=== PATIENT | male | born 1960 ===

== ENCOUNTER → 2019-07-10 | Outpatient (CLI) | payer OTHER | END | disposition home or self-care (01) | LOC: RAD 06:56 | DX: M79.641 Pain in right hand (principal); M25.531 Pain in right wrist ==

== ENCOUNTER 2021-01-07 10:13 | Outpatient (CLI) | payer OTHER | END 2021-01-07 10:23 | disposition home or self-care (01) | LOC: RAD 10:13 | PROVIDERS: ATTEND Internal Medicine Nephrology | DX: M25.552 Pain in left hip (principal) ==

== ENCOUNTER 2021-01-27 08:15 | Outpatient (CLI) | payer OTHER | END 2021-01-27 08:45 | disposition home or self-care (01) | LOC: MRI 08:15 | PROVIDERS: ATTEND Physical Medicine & Rehabilitation Pain Medicine | DX: M54.17 Radiculopathy, lumbosacral region (principal); M25.852 Other specified joint disorders, left hip | CPT/HCPCS: 72148; 73721 ==

== ENCOUNTER → 2024-09-05 | Outpatient (CLI) | payer OTHER | END | disposition home or self-care (01) | LOC: TOM 07:08 | DX: K40.90 Unilateral inguinal hernia, without obstruction or gangrene, not specified as recurrent (principal) ==